=== PATIENT | male | born 1945 | race Caucasian/White ===

== ENCOUNTER 2020-12-09 13:13 | Inpatient (IN) | payer OTHER ==
[~2020-12-09] VITALS: Ht 180.3 cm; Wt 107.5 kg
[2020-12-09] MEDS ORDERED: Ipratropium Brom3 ML INH (14:42)
[2020-12-09] MEDS ORDERED: MOBIC15 MG PO (14:43)
[2020-12-09] MEDS ORDERED: NEURONTIN300 MG PO (14:43)
[2020-12-09] MEDS ORDERED: PROTONIX40 MG PO (14:44)
[2020-12-09] MEDS ORDERED: VASOTEC20 MG PO (14:44)
[2020-12-09] MEDS ORDERED: PRAVACHOL20 MG PO (14:45)
[2020-12-09] MEDS ORDERED: MUCINEX ER600 MG PO (14:45)
[2020-12-09] MEDS ORDERED: PERFOROMIS20 MCG/2 M INH (14:46)
[2020-12-09] MEDS ORDERED: ASPIRIN ADULT L81 M1 PO (14:47)
[2020-12-09] MEDS ORDERED: COLACE100 MG PO (14:48)
[2020-12-09] MEDS ORDERED: CYMBALTA30 MG PO (14:48)
[2020-12-09] MEDS ORDERED: FERROUS GLUCON324 MG PO (14:49)
[2020-12-09] MEDS ORDERED: LASIX40 MG PO (14:50)
[2020-12-09] MEDS ORDERED: ULTRAM50 MG PO (14:56)
[2020-12-09 17:47] VITALS: BP 112/62
[2020-12-09 20:00] VITALS: BP 112/62
[2020-12-09 23:51] LABS: BILIRUBIN Negative (Negative); BLOOD 2+ (Negative); CLARITY Clear (Clear); COLOR Yellow (Yellow); GLUCOSE Negative (Negative); KETONE Negative (Negative); LEUKO ESTERASE 2+ (Negative); NITRITE Negative (Negative); PH 5.5 (4.5-8.0); UROBILINOGEN 0.2 E.U./dl (0.0-1.0)
[2020-12-09 23:59] LABS: WBC 21-30 wbc/hpf (0-5)
[2020-12-10 06:21] LABS: BASO % 0.5 % (0.0-1.0); EOS # 0.5 10*3/uL (0.0-0.4); EOS % 8.3 % (1.0-4.0); HEMATOCRIT 31.9 % (42.0-52.0); LYMPH # 1.3 10*3/uL (1.3-4.4); LYMPH % 21.4 % (27.0-41.0); MEAN CELL VOLUME 93.8 fl (80.0-94.0); MEAN CORPUSCULAR HGB 28.8 pg (27.0-31.0); MEAN CORPUSCULAR HGB CONC 30.7 g/dl (33.0-37.0); MEAN PLATELET VOLUME 9.3 fl (9.6-12.3); MONO # 0.9 10*3/uL (0.1-1.0); MONO % 15.1 % (3.0-9.0); NEUT # 3.2 10*3/uL (2.3-7.9); NEUT % 53.7 % (47.0-73.0); PLATELET COUNT AUTOMATED 335 10*3/uL (130-400); RED CELL DISTRI WIDTH 15.1 % (0-14.5); WHITE BLOOD COUNT 5.9 10*3/uL (4.8-10.8)
[2020-12-10 06:38] LABS: ALBUMIN 2.2 gm/dl (3.1-4.5); ALKALINE PHOSPHATASE 66 U/L (45-117); BUN 13 mg/dl (7-24); CHLORIDE 109 mmol/L (98-107); CHOLESTEROL 115 mg/dL (<200); CREATININE 0.66 mg/dL (0.70-1.30); HDL CHOLESTEROL 50 mg/dl (40-60); LDL CHOLESTEROL 52 mg/dL (9-159); POTASSIUM 3.8 mmol/L (3.5-5.1); SGOT/AST 14 IU/L (3-35); SGPT/ALT 10 U/L (12-78); SODIUM 145 mmol/L (136-145); TOTAL PROTEIN 6.2 gm/dL (6.4-8.2); TRIGLYCERIDES 64 mg/dl (<150); VLDL CHOLESTEROL 13 mg/dL (6-40)
[2020-12-10 06:45] LABS: THYROID STIM HORMONE (HS) 0.826 uIU/ml (0.358-4.75)
[2020-12-10 07:03] VITALS: BP 137/52
[2020-12-10 12:43] LABS: VITAMIN D, 25-HYDROXY 88.4 ng/mL (30-100)
[2020-12-10] MEDS ORDERED: ROBAXIN-750750 MG PO (17:14)
[2020-12-10] MEDS ORDERED: MIRALAX17 GM PO (17:14)
[2020-12-10] MEDS ORDERED: DAILY VALUE1 EACH PO (17:15)
[2020-12-10] MEDS ORDERED: SENOKOT8.6 MG PO (17:16)
[2020-12-10] MEDS ORDERED: ARTHRITIS PAIN650 M3 PO (17:17)
[2020-12-10] MEDS ORDERED: VITAMIN D31250 MC1 PO (17:18)
[2020-12-10 20:00] VITALS: BP 106/56
[2020-12-11 07:56] VITALS: BP 132/58
[2020-12-11 20:00] VITALS: BP 101/74
[2020-12-12 07:35] VITALS: BP 132/66
[2020-12-12 19:30] VITALS: BP 128/62
[2020-12-13 07:21] VITALS: BP 119/68
[2020-12-13 17:06] LABS: NEURONTIN (GABAPENTIN) 5.9 ug/mL (4.0-16.0)
[2020-12-13 19:33] VITALS: BP 138/90
[2020-12-13 21:20] VITALS: BP 134/88
[2020-12-14 07:36] VITALS: BP 134/58
[2020-12-14 20:00] VITALS: BP 130/60
[2020-12-15 07:41] VITALS: BP 140/85
[2020-12-15 21:11] VITALS: BP 104/62
[2020-12-16 07:38] LABS: HEMATOCRIT 33.9 % (42.0-52.0); MEAN CELL VOLUME 93.1 fl (80.0-94.0); MEAN CORPUSCULAR HGB 29.1 pg (27.0-31.0); MEAN CORPUSCULAR HGB CONC 31.3 g/dl (33.0-37.0); MEAN PLATELET VOLUME 9.3 fl (9.6-12.3); PLATELET COUNT AUTOMATED 424 10*3/uL (130-400); RED BLOOD COUNT 3.64 10*6/uL (4.50-5.90); RED CELL DISTRI WIDTH 15.2 % (0-14.5); WHITE BLOOD COUNT 15.9 10*3/uL (4.8-10.8)
[2020-12-16 07:57] LABS: OVALOCYTES FEW; PLATELET SUFFICIENCY HIGH (NORMAL); POLYCHROMASIA SLIGHT; TARGET CELLS FEW; TOTAL CELLS COUNTED 100 #CELLS
[2020-12-16 08:01] VITALS: BP 121/79
[2020-12-16 08:04] LABS: ALBUMIN 2.3 gm/dl (3.1-4.5); ALKALINE PHOSPHATASE 74 U/L (45-117); BUN 46 mg/dl (7-24); CHLORIDE 103 mmol/L (98-107); CREATININE 1.35 mg/dL (0.70-1.30); POTASSIUM 4.6 mmol/L (3.5-5.1); SGOT/AST 22 IU/L (3-35); SGPT/ALT 17 U/L (12-78); SODIUM 140 mmol/L (136-145); TOTAL PROTEIN 7.2 gm/dL (6.4-8.2)
[2020-12-16 19:20] VITALS: BP 134/86
[2020-12-17 06:56] LABS: CREATININE 1.61 mg/dL (0.70-1.30); POTASSIUM 4.4 mmol/L (3.5-5.1)
[2020-12-17 07:26] VITALS: BP 126/72
[2020-12-17 19:50] VITALS: BP 120/68
[2020-12-18 06:42] LABS: HEMATOCRIT 30.7 % (42.0-52.0); MEAN CELL VOLUME 93.9 fl (80.0-94.0); MEAN CORPUSCULAR HGB 28.7 pg (27.0-31.0); MEAN CORPUSCULAR HGB CONC 30.6 g/dl (33.0-37.0); MEAN PLATELET VOLUME 9.9 fl (9.6-12.3); PLATELET COUNT AUTOMATED 400 10*3/uL (130-400); RED BLOOD COUNT 3.27 10*6/uL (4.50-5.90); RED CELL DISTRI WIDTH 15.1 % (0-14.5); WHITE BLOOD COUNT 10.1 10*3/uL (4.8-10.8)
[2020-12-18 07:08] VITALS: BP 106/68
[2020-12-18 07:18] LABS: ALKALINE PHOSPHATASE 76 U/L (45-117); BUN 48 mg/dl (7-24); CHLORIDE 105 mmol/L (98-107); CREATININE 1.29 mg/dL (0.70-1.30); POTASSIUM 4.4 mmol/L (3.5-5.1); SGOT/AST 37 IU/L (3-35); SGPT/ALT 22 U/L (12-78); SODIUM 139 mmol/L (136-145); TOTAL PROTEIN 6.9 gm/dL (6.4-8.2)
[2020-12-18 08:19] LABS: BASOPHILS 1 % (0-1); PLATELET SUFFICIENCY NORMAL (NORMAL); TOTAL CELLS COUNTED 100 #CELLS
[2020-12-18 20:00] VITALS: BP 108/60
[2020-12-19 07:17] VITALS: BP 101/70
[2020-12-19] MEDS ORDERED: Vitamin D (50,000 UN PO (09:55)
[2020-12-19] MEDS ORDERED: Lidoderm 5% Patch T (09:55)
[2020-12-19] MEDS ORDERED: MIRTAZAPINE15 M2 PO (09:55)
[2020-12-19] MEDS ORDERED: HYDROXYZINE HCL25 MG PO (09:55)
[2020-12-19] MEDS ORDERED: TRAMADOL HCL50 MG PO (11:24)
== END 2020-12-19 16:36 | DRG 885 ==
LOC: 3N 13:13
PROVIDERS: Counselor Professional; Internal Medicine; Student in an Organized Health Care Education/Training Program; ADMIT Psychiatry & Neurology Psychiatry; ATTEND Psychiatry & Neurology Psychiatry
DX: F33.2 Major depressive disorder, recurrent severe without psychotic features (principal); E43 Unspecified severe protein-calorie malnutrition; N17.0 Acute kidney failure with tubular necrosis; C34.90 Malignant neoplasm of unspecified part of unspecified bronchus or lung; N39.0 Urinary tract infection, site not specified; I10 Essential (primary) hypertension; J44.9 Chronic obstructive pulmonary disease, unspecified; G62.9 Polyneuropathy, unspecified; G89.29 Other chronic pain; K21.9 Gastro-esophageal reflux disease without esophagitis; E78.5 Hyperlipidemia, unspecified; E66.9 Obesity, unspecified; F34.1 Dysthymic disorder; B96.5 Pseudomonas (aeruginosa) (mallei) (pseudomallei) as the cause of diseases classified elsewhere; K59.00 Constipation, unspecified; F41.1 Generalized anxiety disorder; Z87.891 Personal history of nicotine dependence; Z83.3 Family history of diabetes mellitus; Z80.0 Family history of malignant neoplasm of digestive organs; Z79.899 Other long term (current) drug therapy; D50.9 Iron deficiency anemia, unspecified; Z68.33 Body mass index [BMI] 33.0-33.9, adult; Z20.822 Contact with and (suspected) exposure to COVID-19